=== PATIENT | female | born 1990 | race Caucasian/White ===

== ENCOUNTER → 2023-11-21 | Emergency (ER) | payer BC ==
[~2023-11-21] MED LIST: HYDROMORPHONE HCL 1 MG/ML INJ ONE; NA CHLORIDE 0.9% 1,000 ML ONE; ONDANSETRON 4 MG/2 ML VIAL ONE
[2023-11-21 04:00] LABS: Absolute Lymphocytes (CBC) 1.4 K/uL (0.7-4.9); Hematocrit 38.1 % (36.0-45.0); Lymphocytes % 19.1 % (15.3-44.8); MCV 90.7 fL (80-100); MPV 8.1 fL (7.6-11.3); Platelets 240 thou/uL (152-406)
[2023-11-21 04:15] LABS: Albumin 3.8 g/dL (3.4-5.0); Bilirubin Total 0.4 mg/dL (0.2-1.0); Potassium 3.7 mEq/L (3.5-5.1); Protein, Total 7.5 g/dL (6.4-8.2)
[2023-11-21 04:23] LABS: Specific Gravity 1.042 (1.005-1.030)
[2023-11-21 04:25] LABS: Calcium Oxalate Crystals- Ur Few /HPF (None Seen); Specific Gravity > 1.030 (1.005-1.030); Urine Bacteria None Seen /HPF (<20); Urine Bilirubin NEGATIVE (Negative); Urine Blood 1+ (Negative); Urine Clarity Extremely Turbid (Clear); Urine Color Yellow (Yellow); Urine Glucose NEGATIVE (Negative); Urine Mucus 1+ /HPF (None Seen); Urine Protein 1+ (Negative); Urine RBC 21-50 /HPF (None Seen); Urine Urobilinogen Normal (Normal); Urine WBC Clump Rare /HPF (None Seen); Urine pH 5.5 (5.0-7.0)
--- NOTE | 2023-11-21 06:10 | ER ---
Nurse's Notes [facility] Name: Kesha Tompkins Age: 33 yrs Sex: Female : 1990 Arrival Date: 11/21/2023 Time: 02:29 Bed 11 Private MD: Diagnosis: Diarrheal illness, abdominal pain Presentation: 11/21 02:37 Chief complaint: Patient states: upper abdominal pain x2 days, tonight the pain has as6 just gotten worse. Coronavirus screen: At this time, the client does not indicate any symptoms associated with coronavirus-19. Ebola Screen: No symptoms or risks identified at this time. Initial Sepsis Screen: Does the patient meet any 2 criteria? No. Patient's initial sepsis screen is negative. Does the patient have a suspected source of infection? No. Patient's initial sepsis screen is negative. Risk Assessment: Do you want to hurt yourself or someone else? Patient reports no desire to harm self or others. Onset of symptoms was November 19, 2023. 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 - Social history:: Smoking status: Patient denies any tobacco usage or history of. Screenin:49 [facility] ED Fall Risk Assessment (Adult) Score/Fall Risk Level 0 - 2 = Low Risk. Abuse as6 screen: Denies threats or abuse. Denies injuries from another. Nutritional screening: No deficits noted. Tuberculosis screening: No symptoms or risk factors identified. Assessment: 02:48 General: Appears uncomfortable, Behavior is calm, cooperative. Pain: Complains of pain as6 in epigastric area and umbilical area. Neuro: Level of Consciousness is awake, alert, obeys commands, Oriented to person, place, time, situation. Cardiovascular: Capillary refill < 3 seconds Patient's skin is warm and dry. Respiratory: Respiratory effort is even, unlabored, Respiratory pattern is regular, symmetrical. GI: Abdomen is tender to palpation Reports upper abdominal pain, nausea. Derm: Skin is intact. 04:28 Reassessment: Patient appears in no apparent distress at this time. Patient states as6 feeling better. 06:01 General: pt reports nausea and abd pain has returned. provider notified . as6 Vital Signs: 02:37 BP 126 / 88; Pulse 87; Resp 16 S; Temp 98.1(O); Pulse Ox 98% on R/A; Weight 70.31 kg as6 (R); Height 5 ft. 1 in. (R); Pain 8/10; 04:28 BP 102 / 76; Pulse 79; Resp 16 S; Pulse Ox 99% on R/A; as6 06:01 BP 101 / 80; Pulse 79; Resp 18 S; Pulse Ox 98% on R/A; as6 02:37 Body Mass Index 29.29 (70.31 kg, 154.94 cm) as6 02:37 Pain Scale: Adult as6 ED Course: 02:32 Patient arrived in ED. jj6 02:38 Triage completed. as6 02:38 Arm band placed on. as6 02:45 Chadd Akhtar, SASHA is Primary Nurse. as6 02:49 Nick Taylor MD is Attending Physician. sp3 02:49 Bed in low position. Call light in reach. as6 03:13 Radiology exam delayed due to IV insertion attempt and/or patient not having eh4 appropriate IV at this time. 03:13 Radiology exam delayed due to lab results not completed at this time. (BUN/Creatinine). eh4 03:13 Radiology exam delayed due to test not completed at this time. eh4 03:21 Test, Urine Sent. kmf 03:21 Urinalysis w/ reflexes Sent. kmf 03:28 Inserted saline lock: 20 gauge in left antecubital area, using aseptic technique. Blood kmf collected. 04:49 CT Abd/Pelvis - IV Contrast Only In Process Unspecified. EDMS 06:38 No provider procedures requiring assistance completed. IV discontinued, intact, as6 bleeding controlled, No redness/swelling at site. Pressure dressing applied. 06:39 Provided Education on: abx teaching . as6 Administered Medications: 03:36 Drug: NS 0.9% IV 1000 ml IV at 1 bolus Per protocol; 1000 mL bolus Route: IV; Rate: 1 as6 bolus; Site: left antecubital; 06:36 Follow up: Response: No adverse reaction; IV Status: Completed infusion; IV Intake: as6 1000ml 03:36 Drug: Ondansetron IVP 4 mg IVP once; over 2 minutes Route: IVP; Site: left antecubital; as6 06:36 Follow up: Response: No adverse reaction as6 03:36 Drug: HYDROmorphone IVP 1 mg IVP once Route: IVP; Site: left antecubital; as6 06:37 Follow up: Response: No adverse reaction as6 Medication: 02:49 VIS not applicable for this client. as6 Intake: 06:36 IV: 1000ml; Total: 1000ml. as6 Outcome: 06:09 Discharge ordered by . sp3 06:38 Discharged to home ambulatory, as6 06:38 Condition: stable 06:38 Discharge instructions given to patient, Instructed on discharge instructions, follow up and referral plans. medication usage, Demonstrated understanding of instructions, follow-up care, medications, Prescriptions given X 2, 06:40 Patient left the ED. as6 Signatures: Dispatcher [employer] EDMS Nick Taylor MD MD sp3 Leanna Mike6 Chadd Akhtar, SASHA RN as6 [facility]
--- NOTE | 2023-11-21 06:10 | EDPHYS ---
Physician Documentation [facility] Name: Kesha Tompkins Age: 33 yrs Sex: Female : 1990 Arrival Date: 11/21/2023 Time: 02:29 Bed 11 Private MD: ED Physician Nick Taylor HPI: 11/21 03:04 This 33 yrs old Female presents to ER via Ambulatory with complaints of Abdominal Pain. sp3 03:04 33-year-old female with history of anxiety, 3 prior C-sections, now presents to the ED sp3 with abdominal pain mid abdomen for 24 to 48 hours. Patient is on Ozempic for weight loss. She denies fever, vomiting or diarrhea, headache, upper respiratory symptoms, chest pain, shortness of breath, back pain, rash, syncope, near syncope, or any other signs or symptoms on ROS at this time.. 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 - Social history:: Smoking status: Patient denies any tobacco usage or history of. ROS: 03:05 Constitutional: Negative for fever, chills, and weight loss, Eyes: Negative for injury, sp3 pain, redness, and discharge, ENT: Negative for injury, pain, and discharge, Neck: Negative for injury, pain, and swelling, Cardiovascular: Negative for chest pain, palpitations, and edema, Respiratory: Negative for shortness of breath, cough, wheezing, and pleuritic chest pain, Back: Negative for injury and pain, MS/Extremity: Negative for injury and deformity, Skin: Negative for injury, rash, and discoloration, Neuro: Negative for headache, weakness, numbness, tingling, and seizure, Psych: Negative for depression, anxiety, suicide ideation, homicidal ideation, and hallucinations, Allergy/Immunology: Negative for hives, rash, and allergies, Endocrine: Negative for neck swelling, polydipsia, polyuria, polyphagia, and marked weight changes, Hematologic/Lymphatic: Negative for swollen nodes, abnormal bleeding, and unusual bruising, 03:05 All other systems are negative, Exam: 03:05 Constitutional: This is a well developed, well nourished patient who is awake, alert, sp3 and in no acute distress. Head/Face: Normocephalic, atraumatic. Eyes: Pupils equal round and reactive to light, extra-ocular motions intact. Lids and lashes normal. Conjunctiva and sclera are non-icteric and not injected. Cornea within normal limits. Periorbital areas with no swelling, redness, or edema. ENT: Nares patent. No nasal discharge, no septal abnormalities noted. External auditory canals are clear. Oropharynx with no redness, swelling, or masses, exudates, or evidence of obstruction, uvula midline. Mucous membranes moist. Neck: Trachea midline, no thyromegaly or masses palpated, and no cervical lymphadenopathy. Supple, full range of motion without nuchal rigidity, or vertebral point tenderness. No Meningismus. Chest/axilla: Normal chest wall appearance and motion. Nontender with no deformity. No lesions are appreciated. Cardiovascular: Regular rate and rhythm with a normal S1 and S2. No gallops, murmurs, or rubs. Normal PMI, no JVD. No pulse deficits. Respiratory: Lungs have equal breath sounds bilaterally, clear to auscultation and percussion. No rales, rhonchi or wheezes noted. No increased work of breathing, no retractions or nasal flaring. Back: No spinal tenderness. No costovertebral tenderness. Full range of motion. Skin: Warm, dry with normal turgor. Normal color with no rashes, no lesions, and no evidence of cellulitis. MS/ Extremity: Pulses equal, no cyanosis. Neurovascular intact. Full, normal range of motion. Neuro: Awake and alert, GCS 15, oriented to person, place, time, and situation. Cranial nerves II-XII grossly intact. Motor strength 5/5 in all extremities. Sensory grossly intact. Cerebellar exam normal. Normal gait. Psych: Awake, alert, with orientation to person, place and time. Behavior, mood, and affect are within normal limits. 03:05 Abdomen/GI: Patient with epigastric abdominal pain without peritoneal signs, rebound or guarding., Vital Signs: 02:37 BP 126 / 88; Pulse 87; Resp 16 S; Temp 98.1(O); Pulse Ox 98% on R/A; Weight 70.31 kg as6 (R); Height 5 ft. 1 in. (R); Pain 8/10; 04:28 BP 102 / 76; Pulse 79; Resp 16 S; Pulse Ox 99% on R/A; as6 06:01 BP 101 / 80; Pulse 79; Resp 18 S; Pulse Ox 98% on R/A; as6 02:37 Body Mass Index 29.29 (70.31 kg, 154.94 cm) as6 02:37 Pain Scale: Adult as6 MDM: 02:59 Patient medically screened. sp3 03:06 Data reviewed: vital signs, nurses notes, lab test result(s), radiologic studies. ED sp3 course: 33-year-old female on Ozempic with abdominal pain. Differential diagnosis includes Ozempic side effect, surgical pathology, adhesions, among others. Will obtain CT scan of the abdomen pelvis, laboratory values and administer Dilaudid and Zofran for pain control. Disposition pending workup and patient course.. 06:08 ED course: CT scan demonstrates diarrheal illness. Patient feels better. I will sp3 discharge her home on Cipro and Flagyl on a [id number] basis if she has not improved or getting worse within the next 24 hours, she will start antibiotics. Otherwise conservative approach with oral hydration will be preferred. Patient agrees and will follow this plan. She knows she may return here at any time if she has any concerns or things worsen.. 11/21 03:02 Order name: CBC with Diff; Complete Time: 04:34 sp3 11/21 03:02 Order name: CMP; Complete Time: 04:34 sp3 11/21 03:02 Order name: Lipase; Complete Time: 04:34 sp3 11/21 03:02 Order name: Test, Urine; Complete Time: 04:34 sp3 11/21 03:02 Order name: Urinalysis w/ reflexes; Complete Time: 04:34 sp3 11/21 03:02 Order name: CT Abd/Pelvis - IV Contrast Only sp3 11/21 03:02 Order name: IV Saline Lock; Complete Time: 03:29 sp3 11/21 03:02 Order name: Labs collected and sent; Complete Time: 03:29 sp3 Administered Medications: 03:36 Drug: NS 0.9% IV 1000 ml IV at 1 bolus Per protocol; 1000 mL bolus Route: IV; Rate: 1 as6 bolus; Site: left antecubital; 06:36 Follow up: Response: No adverse reaction; IV Status: Completed infusion; IV Intake: as6 1000ml 03:36 Drug: Ondansetron IVP 4 mg IVP once; over 2 minutes Route: IVP; Site: left antecubital; as6 06:36 Follow up: Response: No adverse reaction as6 03:36 Drug: HYDROmorphone IVP 1 mg IVP once Route: IVP; Site: left antecubital; as6 06:37 Follow up: Response: No adverse reaction as6 Disposition Summary: 11/21/23 06:09 Discharge Ordered Notes: Location: Home sp3 Condition: Stable sp3 Diagnosis - Diarrheal illness, abdominal pain sp3 Followup: sp3 - With: Private Physician - When: Upon discharge from the Emergency Department - Reason: Continuance of care Discharge Instructions: - Discharge Summary Sheet sp3 - Diarrhea, Adult sp3 Forms: - Medication Reconciliation Form sp3 - Thank You Letter sp3 - Antibiotic Education sp3 - Prescription Opioid Use sp3 - Patient Portal Instructions sp3 - Leadership Thank You Letter sp3 Prescriptions: - Flagyl 500 mg Oral tablet - take 1 tablet ORAL route every 8 hours for 7 days; 21 tablet; Refills: 0, sp3 Product Selection Permitted - Cipro 500 mg Oral Tablet - take 1 tablet ORAL route every 12 hours for 7 days; 14 tablet; Refills: 0, sp3 Product Selection Permitted Signatures: Dispatcher [employer] Nick Suarez MD MD sp3 Chadd Akhtar RN RN as6
[2023-11-21 09:20] VITALS: TEMP 98.1
[2023-11-21 09:26] VITALS: BP 101/80; O2SAT 98
--- NOTE | 2023-11-21 13:27 | RAD REPORT ---
EXAM DESCRIPTION: CT - Abdomen Pelvis W Contrast - 11/21/2023 6:40 am CLINICAL HISTORY: 33 years Female; epigastric to mid abd pain; IV ONLY Bed Name: 11 TECHNIQUE: CT of the abdomen and pelvis with intravenous contrast. All CT scans at this facility use dose modulation, iterative reconstruction, and/or weight based dosi ng when appropriate to reduce radiation dose to as low as reasonably achievable. COMPARISON: None. FINDINGS: Lower thorax: Lung bases are clear Abdomen: Stomach: Within normal limits Liver: No focal lesions. Hepatic steatosis. No intrahepatic ductal distention. Gallbladder: Nondistended Pancreas: Within normal limits Spleen: Within normal limits Right kidney: No hydronephrosis. No focal lesion. Left kidney: No hydronephrosis. No focal lesion. Adrenal glands: Within normal limits Vascular structures: Within normal limits Nodes: No lymphadenopathy by size criteria Pelvis: Small bowel: No significant distention. Appendix: Within normal limits Colon: Fluid-filled contents within the colon. Extensive submucosal fat deposition within the colon. Peritoneum: No free intraperitoneal fluid or air. Bones: No acute bone findings. Bladder: Unremarkable. Reproductive organs: No acute findings. Soft tissues: Tiny fat-containing umbilical hernia. IMPRESSION: 1. Fluid-filled contents within the colon, can be seen in setting of diarrheal illness . 2. Extensive submucosal fat deposition within the colon, can be seen in setting of chronic inflamma tory bowel disease. 3. Hepatic steatosis. Electronically signed by: Gina Salguero MD 11/21/2023 05:12 AM GUARD SUPERVISOR Due to temporary technical issues with the PACS/Fluency reporting system, reports are being signed by the in house radiologists without review as a courtesy to insure prompt reporting. The interpreting radiologist is fully responsible for the content of the report.
== END ==
LOC: ER 02:29
DX: R19.7 Diarrhea, unspecified (principal)
CPT/HCPCS: 96361; 85025; 81001; 36415; 81025; 83690; 80053; 74177; 96375; 96374; 99284; Q9967; J1170; J2405; J7030